=== PATIENT | female | born 1965 | race Caucasian/White ===

== ENCOUNTER 2017-01-21 10:17 | Inpatient (IN) | payer OTHER ==
[2017-01-21] VITALS (7 sets, daily range): BP systolic 128–152; BP diastolic 75–86; PULSE 66–84; RESP 16–20; O2SAT 95–100
[~2017-01-21] VITALS: Ht 167.6 cm; Wt 75.1 kg
[~2017-01-21 10:17] MED LIST: FAMO20T PO
--- NOTE | 2017-01-21 10:44 | ED.REPORT ---
HPI-Chest Pain 40 and Over Date of Service Jan 21, 2017 ED Provider: ZohaibAlexander A 51 year old female with a personal history of smoking and COPD and a family history of hypertension and peripheral vascular disease presents to the ED complaining of chest pain. The pt experienced an episode of constant substernal chest pain last night lasting from 16:00 to 19:00. This was accompanied by dizziness and diaphoresis but the pt denies nausea, vomiting, cough, fever, lower extremity edema, neck pain or back pain. The pain was relieved somewhat by breathing deeply and resolved at 19:00, allowing the pt to sleep. She woke at 04:50 this morning to similar pain. The symptoms continued until the pt's arrival in the ED and is now radiating into her right arm. The pt has experienced similar symptoms every few months for the last two years, each of which lasts for five to ten minutes. She has a family history of hypertension and cardiac disease, but denies recent travel or a history of PE. Nursing Notes Stated Complaint: CHEST PAIN Chief Complaint: Chest Pain Nursing Notes Reviewed: Yes Allergies: Coded Allergies: No Known Allergies (Verified Allergy, Unknown, 01/21/17) Scheduled Latanoprost (Latanoprost) 2.5 Ml Drops 1-2 DROP BOTH_EYES HS Scheduled PRN Albuterol HFA (Proair HFA) 8.5 Gm Hfa.aer.ad 2 PUFFS INHALATION Q4H PRN PRN For Shortness of Breath Cyclobenzaprine (Cyclobenzaprine) 10 Mg Tablet 10 MG PO HS PRN PRN For Spasm General Time Seen by MD: 10:44 Chief Complaint Chest pain Hx Obtained From: Patient Arrived By: Walk-in Sudden in Onset?: Yes Symptom Duration: Intermittent Recent Healthcare: No recent hospitalization, Recent doctor visit Similar Sx Previous: No Risk Factors PERC Rule Age 50 or over PERC Result: All PERC criteria "No", PERC rule satisfied Past Medical History Past Medical History Reports: COPD Past Surgical History Gallbladder Reports: Appendectomy Family History HTN Peripheral vascular disease Smoking History Current Every Day Smoker Social History Other Social History: Good social support Ambulatory Status Independent Review of Systems Review of Systems Note: denies lower extremity edema Constitutional: Denies: Fever Respiratory: Denies: Non-productive cough, Shortness of breath Cardiovascular: Reports: Chest pain GI: Denies: Abdominal pain, Nausea, Vomiting Musculoskeletal: Denies: Back pain, Neck pain Skin: Reports Diaphoresis, Denies Rash Neurologic: Reports: Dizziness Complete sys rev & neg: except as marked. Physical Exam Initial Vital Signs Vital Signs (First) Date Time Temp Pulse Resp B/P Pulse Ox O2 Delivery O2 Flow Rate FiO2 01/21/17 10:40 36.7 70 20 152/84 100 Room Air Initial VS: Reviewed General/Constitutional: Awake, Alert Respiratory / Chest: Atraumatic, Breath sounds NL, Breath sounds = bilat, No respiratory distress Cardiovascular: Heart rate NL, Regular rhythm, Heart sounds NL, No murmurs Abdomen: Atraumatic, Soft, Non-tender Neck: Atraumatic, Supple, Full range of motion Back: Atraumatic, Full range of motion Lower Extremity / Pelvis / MS: Atraumatic, Full range of motion, No edema Skin: Atraumatic, Color NL, No rash, Warm, Dry Neurologic: Oriented X3, Speech NL, No motor deficits, No sensory deficits Psychiatric: Affect NL, Mood NL Head / Eyes: Atraumatic, Normocephalic, PERRL, EOMI ENT: Atraumatic, Airway patent, Mucous membranes moist Upper Extremity / MS: Atraumatic, Full range of motion Interpretation & Diagnostics Lab Results Interpretation Result Diagram: 01/21/17 1030 01/21/17 1030 Test 01/21/17 10:30 01/21/17 12:40 01/21/17 16:22 White Blood Count 4.9th/mm3 (3.8-10.1) Red Blood Count 4.78mil/mm3 (3.90-5.20) Hemoglobin 13.8g/dL (12.0-15.6) Hematocrit 42.3% (35.0-46.0) Mean Corpuscular Volume 88.5fL (81-100) Mean Corpuscular Hemoglobin 28.9pg (27.0-35.0) Mean Corpuscular Hemoglobin Concent 32.6% (32.0-37.0) Red Cell Distribution Width 13.9% (12.3-15.4) Platelet Count 203bil/L (150-400) Neutrophils (%) (Auto) 57.3% (40-74) Lymphocytes (%) (Auto) 33.0% (14-46) Monocytes (%) (Auto) 6.4% (4-12) Eosinophils (%) (Auto) 2.3% (0-5) Basophils (%) (Auto) 0.8% (0-3) Sodium Level 137mEq/L (134-144) Potassium Level 4.0mEq/L (3.5-5.2) Chloride Level 102mEq/L (97-108) Carbon Dioxide Level 21mmol/L (18-29) Blood Urea Nitrogen 13mg/dL (6-24) Creatinine 0.62mg/dL (0.57-1.00) Estimat Glomerular Filtration Rate 144mL/min (>59) Glucose Level 97mg/dL (60-99) Calcium Level 9.5mg/dL (8.5-10.1) Magnesium Level 2.0mg/dL (1.6-2.6) Total Bilirubin 0.5mg/dL (0.0-1.2) Aspartate Amino Transf (AST/SGOT) 15U/L (0-50) Alanine Aminotransferase (ALT/SGPT) 11U/L (0-32) Alkaline Phosphatase 79U/L (25-150) Total Protein 6.9g/dL (6.4-8.4) Albumin 4.1g/dL (3.4-5.0) Hold Lo Top Tube Received (Received) Troponin T < 0.010ug/L (0.0-0.011) Pro-B-Type Natriuretic Peptide 88.91pg/mL (0-249) Urine Color Straw (YELLOW) Urine Appearance Clear (CLEAR,HAZY) Urine pH 6.0 (5.0-8.0) Urine Specific [place] 1.010 (1.003-1.035) Urine Protein Tracemg/dL (NEG,TRACE) Urine Glucose (UA) Negativemg/dL (NEGATIVE) Urine Ketones Negativemg/dL (NEGATIVE) Urine Occult Blood Trace (NEGATIVE) Urine Nitrite Negative (NEGATIVE) Urine Bilirubin Negative (NEGATIVE) Urine Urobilinogen Normalmg/dL (NORMAL) Urine Leukocyte Esterase Moderate (NEGATIVE) Urine RBC 0-2/hpf (0-2) Urine WBC 0-5/hpf (0-5) Urine Epithelial Cells Few/hpf (NONE-MOD) Urine Crystals None seen (NONE SEEN) Urine Bacteria Few/hpf (NONE-FEW) Urine Hyaline Casts None/lpf (NONE) Urine Granular Casts None seen (NONE SEEN) Urine Waxy Casts None seen (NONE SEEN) Urine Red Blood Cell Casts None seen (NONE SEEN) Urine White Blood Cell Casts None seen (NONE SEEN) Urine Mucus None seen (None Seen) Urine Trichomonas None seen (NONE SEEN) Urine Yeast None (NONE SEEN) Urinalysis Comment None Urine Culture Reflexed Indicated Urine Opiates Screen Negative Urine Methadone Screen Negative Urine Barbiturates Screen Negative Urine Amphetamines Screen Negative Urine Benzodiazepines Screen Negative Urine Cocaine Metabolite Screen Negative Urine Cannabinoids Screen Positive ECG Interpretation ECG Interpretation: Sinus rhythm with a rate of [address]/T changes Time: 10:40 Interpreted by: ED physician ECG Interpretation: normal sinus rhythm with a rate of [address]/T changes Q waves in -VIII, unchanged Time: 13:44 Interpreted by: ED physician X-Ray Chest Interpretation Chest Xray Interpretation: IMPRESSION: No acute cardiopulmonary disease process. Dictated by: Alee Ludwig MD, PhD on 01/21/2017 at 11:49 Approved by: Alee Ludwig MD, PhD on 01/21/2017 at 11:50 Interpretation / Wet Read by: Interpret - Radiologist Re-Eval/Medical Decision Med Decision/Clinical Course 51-year-old female history of smoking presenting with substernal chest pain last night and this morning. Troponins negative 2. No EKG changes. Patient had 2 episodes of substernal chest pain lasting 5-10 minutes while she was here with associated diaphoresis. Cannot rule out unstable angina. History of episodes for 1 year monthly. Patient requests admission. Admitted for ACS rule out. Source of Hx: Old records Time of Eval: 13:52 Re-Evaluation/Progress Note: Pt rechecked and further history is obtained. Time of Eval: 15:10 Re-Evaluation/Progress Note: Pt rechecked, who is stable. Options for both admission and discharge are discussed, and the pt requests admission. The pt understands and agrees with the plan. All questions are addressed at this time. Consultation : Referral / Consult Name: Geovanny Lucio MD Consulted With: Hospitalist Call Returned at: 15:24 [employer] Program Coordinator: Agrees with eval, Agrees with plan, Accepts admit Note: Spoke with Dr. Lucio, hospitalist, regarding pt's case. Dr. Lucio agrees with the evaluation and agrees to admit the pt. Counseled Regarding: Diagnosis, Lab results, Need for admission Discharge & Departure Primary Impression: Chest pain Chest pain type: unspecified Qualified Code: R07.9 - Chest pain, unspecified Disposition: ADMITTED TO HOSPITAL Discharge Condition All VS Reviewed: Yes Condition: Stable Referrals: Dian Ruiz PA-C (PCP) Guy Attestation Portions of this note were transcribed by Nyasia Vincent. I, Dr. Tena personally performed the history, physical exam and medical decision-making; I reviewed and confirmed the accuracy of the information in the transcribed note. Signed by: Guy Rutherford, 01/21/17 and 1529. copies to: Dian Ruiz PA-C, Ben M MD Jan 21, 2017 10:44 Lori Ward Jan 21, 2017 10:50 NYASIA VINCENT Jan 21, 2017 11:11
[2017-01-21 10:47] LABS: BASOPHILS % (AUTO) 0.8 % (0-3); EOSINOPHILS % (AUTO) 2.3 % (0-5); MONOCYTES % (AUTO) 6.4 % (4-12); Mean Corpuscular Hemoglobin 28.9 pg (27.0-35.0); Mean Corpuscular Volume 88.5 fL (81-100); NEUTROPHILS % (AUTO) 57.3 % (40-74); Platelet Count 203 bil/L (150-400)
[2017-01-21 11:11] LABS: TROPONIN T 0.01 ug/L (0.0-0.011)
--- NOTE | 2017-01-21 11:51 | DRSVH ---
PROCEDURE: X-RAY CHEST ONE VIEW, PORTABLE ([id number]) INDICATIONS: CHEST PAIN TECHNIQUE: One view of the chest was acquired. COMPARISON: [facility], CR, XR CHEST 1VW (PORTABLE), 07/06/2016, 11:49. FINDINGS: Surgical changes and devices: None. Lungs and pleura: No pleural effusions or pneumothorax. Lungs are clear. Mediastinum: Mediastinal contours appear normal. Heart size is normal. Bones and chest wall: No suspicious bony lesions. Overlying soft tissues appear unremarkable. IMPRESSION: No acute cardiopulmonary disease process. Dictated by: Alee Ludwig MD, PhD on 01/21/2017 at 11:49 Approved by: Alee Ludwig MD, PhD on 01/21/2017 at 11:50
[2017-01-21] MEDS ORDERED: LidocaineVisc 2%:Antacid 1:1 10 mL Syringe PO ONE (14:05)
[2017-01-21] MEDS ORDERED: LATA2.5D6 BOTH_EYES (14:38)
[2017-01-21] MEDS ORDERED: CYCL10TA9 PO (14:38)
[2017-01-21] MEDS ORDERED: ALBU8.5H2 INHALATION (14:44)
[2017-01-21] MEDS ORDERED: Polyethylene Glycol (PEG) 17 Gm Powder PO PRN (16:05)
[2017-01-21] MEDS ORDERED: Ondansetron 2 mg/mL 2 mL Inj IVPUSH PRN (16:05)
[2017-01-21] MEDS ORDERED: Alum-Mag Hydrox-Simeth 30 mL Suspension PO PRN (16:05)
[2017-01-21 16:38] LABS: APPEARANCE,URINE CLEAR (CLEAR,HAZY); COLOR,URINE STRAW (YELLOW)
[2017-01-21 16:39] LABS: OCCULT BLOOD,URINE TRACE (NEGATIVE); UROBILINOGEN,URINE NORMAL (NORMAL)
--- NOTE | 2017-01-21 18:02 | NUR ---
ADMIT TO [facility] Patient arrived at [facility] at 1630, oriented to room and hospital policies. Patient denies chest pain at this time. LOC x4, VSS, Labs appear normal including second Troponin. Patient on room air, denies nausea, and shortness of breath. Plan observation, serial troponin, ECHO, and stress test in am.
--- NOTE | 2017-01-21 19:47 | PCM.HPMED ---
Subjective Date of Service Jan 21, 2017 Primary Provider: Admitting Physician: Geovanny Lucio MD Primary Care Physician: Dian Ruiz PA-C Attending Physician: Geovanny Lucio MD Chief Complaint: Chest pain History of Present Illness: Patient is a 51-year-old white female who has been having chest pain possibly 2 times a month at his quite severe and feels like someone is sitting on her chest. She began having that pain again this morning which woke her up at approximately 450 in the morning. Patient generally work wakes up at 5. Patient felt like there was someone sitting on her chest or her cat was sitting on her chest. He tried repositioning herself to help alleviate the pain and taking the breast nothing really worked. She ended up leaving the house just after 5 AM to go to work the patient arrived at work at 5:19 AM. She started working at 5:30 AM. She had to stop and take deep rest periodically to try to alleviate her pain. She then had a coworker take her vital signs as her coworker was also a technical training coordinator and [employer]. Her coworker told her that she looked pale and diaphoretic and needed to go to the emergency room. Patient came to the emergency room and was evaluated by Dr. Gil Logan. Patient had a troponin which was negative she was given a GI cocktail she approximate 5 over several hours later had another strip on which was negative the patient was agreeable to go home until she had another episode of chest pain with diaphoresis. Patient states she was sweating from head to toe even wanted to take her shoes and socks off she felt weak and the chest pain was similar or worse than the pain prior to coming into the emergency room. Due to the recurrent chest pain and history of tobacco use the patient was to be brought in under observation to the hospital service for further evaluation and treatment. Review of Systems: General: The patient complained of diaphoresis. However, no she had no fever or chills. The diaphoresis was associated with her chest pain. HEENT: Patient has no headache, patient has no diplopia, patient has no changes in vision. However, patient states she is supposed to wear glasses all the time and only wears them all driving. He states are hard to get used to. Patient also has recently been diagnosed with glaucoma in both eyes. Patient has no problems with their ears, nose or throat. Patient has no known dental problems. Patient has no pharyngitis or history of thrush. Neck: Patient has no stiffness in the neck. Patient has no lymphadenopathy. Patient has no other problems with their neck. Pulmonary: Patient has no shortness of breath, no cough, no expectoration of sputum. Patient has no pleurisy. Patient had chest pain as described in history of present illness. Patient has no history of asthma or COPD. Cardiovascular: Patient has no chest pain. Patient has no history of heart murmur. Patient has no palpitations. Patient has no history of myocardial infarction. Patient has no history of coronary artery disease. Gastrointestinal: Patient has no history of hepatitis A, B or C. Patient has no history of peptic ulcer disease. Patient has no history of gastroesophageal reflux disease. Patient has no history of nausea, vomiting, or diarrhea. Patient has no history of hematemesis, hematochezia, or melena. Patient has no history of colitis. Renal: Patient has no history of kidney disease. No history of kidney stones. Genitourinary: Patient has no history of dysuria, frequency, or incontinence. Patient has no previous history of genitourinary problems. Musculoskeletal: Patient has no history of muscular skeletal problems. Neurologic: Patient has no history of stroke, no history of seizure, no history of TIA. Psychiatric: Patient has no history of psychiatric problems. The remainder of the entire review of systems was reviewed with patient and is as mentioned above otherwise negative. Allergies Coded Allergies: No Known Allergies (Verified Allergy, Unknown, 01/21/17) Home Medications Scheduled Latanoprost (Latanoprost) 2.5 Ml Drops 1-2 DROP BOTH_EYES HS Scheduled PRN Albuterol HFA (Proair HFA) 8.5 Gm Hfa.aer.ad 2 PUFFS INHALATION Q4H PRN PRN For Shortness of Breath Cyclobenzaprine (Cyclobenzaprine) 10 Mg Tablet 10 MG PO HS PRN PRN For Spasm PMH Patient says she has COPD she is smoked since she was 12 years old and has smoked as much as 2 packs per day however now she is down to one half a pack per day. Patient states that every time someone checks her blood pressure they say it is "high" but she has never taken anything for blood pressure. Surgical History Patient had a cholecystectomy in January 1993 and had an appendectomy in 1992. Patient underwent tubal ligation in May 1993. Family History His father is alive and has emphysema. Does not know much more about her father she does not have contact with him. Patient's mother at 77 from complications of systemic lupus erythematosus and peripheral vascular occlusive disease. She had infected bypass graft material or stents placed in her legs and ended up having a very high above the knee amputation which ultimately was the beginning of her demise. Patient has 1 sister who is a smoker and had Garcia-Diogenes syndrome so severe that she was hospitalized for [address] [facility]. Patient sister blame this on Chantix. Patient has 1 older brother who is healthy and one younger brother who is healthy. Social History Hx Alcohol Use: No Hx Substance Use: No Smoking Status: Current Every Day Smoker (The patient has smoked since she was 12 years old and interpeak was smoking 2 packs per day and now smokes only half a pack a day.) Living Arrangement: with Family (The patient lives with her and her 24 -year-old son.) Additional Information The patient was born in [place], [place]. She went to high school there and graduated in 1981. She went to [employer] for 2 years and learned [employer]. 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 She worked for [employer] for 3 years. Patient has been now for 28 years she was living on [address] and now lives in lock on her for the last 3 years. She works at the [employer] in the [facility] [employer] where her daughter is her boss. Exam Vital Signs Vital Sign - Last Date Time Temp Pulse Resp B/P Pulse Ox O2 Delivery O2 Flow Rate FiO2 01/21/17 17:47 67 01/21/17 16:47 36.6 16 146/85 98 Room Air Exam General: Patient is in no apparent distress present time. He is lying supine in bed with her head elevated approximately 30 comfortably. HEENT: Head is atraumatic and normocephalic. Eyes: Pupils are equally round and reactive to light and accommodation. Extraocular muscles are intact. Sclera are white, anicteric. Subconjunctival mucosa is pink. Ears and nose are unremarkable. Oropharynx: There is no mucosal lesions, there is no thrush, there is no pharyngitis. Neck: Is supple, there are no nodes, or masses or tenderness. Chest: Is clear to auscultation and percussion. There are no rales, rhonchi, wheezes or rubs. Heart: Rate, rhythm is regular. There is no murmur, rub or gallop. Abdomen: Good bowel sounds are present. Abdomen is soft, nontender, no organomegaly or masses were appreciated. Extremities: Are symmetrical and well perfused. There is no edema, there is no cellulitis, no rash. Neurologic: There are no focal neurological deficits. Cranial nerves II through XII are intact. There are no sensory or motor deficits. Psychiatric: Patients mood is calm and shows no sign of agitation. Genital: Deferred Rectal: Deferred Lab and Diagnostics Result Diagram: 01/21/17 1030 01/21/17 1030 Microbiology Urine cultures pending X-Rays, CTs and MRIs PROCEDURE: X-RAY CHEST ONE VIEW, PORTABLE ([id number]) INDICATIONS: CHEST PAIN TECHNIQUE: One view of the chest was acquired. COMPARISON: [facility], CR, XR CHEST 1VW (PORTABLE), 07/06/2016, 11 :49. FINDINGS: Surgical changes and devices: None. Lungs and pleura: No pleural effusions or pneumothorax. Lungs are clear. Mediastinum: Mediastinal contours appear normal. Heart size is normal. Bones and chest wall: No suspicious bony lesions. Overlying soft tissues appear unremarkable. IMPRESSION: No acute cardiopulmonary disease process. Dictated by: Alee Ludwig MD, PhD on 01/21/2017 at 11:49 Approved by: Alee Ludwig MD, PhD on 01/21/2017 at 11:50 Cardiac Echo Impressions Pending Assessment & Plan Patient is a 51-year-old white female who has been having chest pain possibly 2 times a month at his quite severe and feels like someone is sitting on her chest. She began having that pain again this morning which woke her up at approximately 450 in the morning. Patient generally work wakes up at 5. Patient felt like there was someone sitting on her chest or her cat was sitting on her chest. He tried repositioning herself to help alleviate the pain and taking the breast nothing really worked. She ended up leaving the house just after 5 AM to go to work the patient arrived at work at 5:19 AM. She started working at 5:30 AM. She had to stop and take deep rest periodically to try to alleviate her pain. She then had a coworker take her vital signs as her coworker was also a technical training coordinator and [employer]. Her coworker told her that she looked pale and diaphoretic and needed to go to the emergency room. Patient came to the emergency room and was evaluated by Dr. Gil Logan. Patient had a troponin which was negative she was given a GI cocktail she approximate 5 over several hours later had another strip on which was negative the patient was agreeable to go home until she had another episode of chest pain with diaphoresis. Patient states she was sweating from head to toe even wanted to take her shoes and socks off she felt weak and the chest pain was similar or worse than the pain prior to coming into the emergency room. Due to the recurrent chest pain and history of tobacco use the patient was to be brought in under observation to the hospital service for further evaluation and treatment. # Chest pain, present at the time of admission. Active, however patient has no chest pain at present time. - We will trend serial troponins - We will check echocardiogram - Continue telemetry monitoring - If above unremarkable perform treadmill stress test tomorrow. If positive will consult cardiology and if negative will discharge home. # Patient has history of hypertension that has never been treated, present time of admission. Active. - We will monitor blood pressure goals closely and offer treatment if patient is found to have hypertension. # COPD, present time of admission. Active - We will offer treatment as needed. - Patient advised strongly overnight over again that she needs to quit smoking. She states is difficult as she has been smoking since she was 12 years old. However, she has cut down to half a pack per day. 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 - Check hypercoagulable panel - Consider CT angiogram the chest to rule out pulmonary embolism as cause for her chest pain and diaphoresis. Disposition: Patient brought in under observation for evaluation and treatment. Further disposition will depend on the results of above testing. Pain Evaluation: Adequate Pain Control VTE Prophylaxis: Sub-Q Enoxaparin Resuscitation Status: CPR: Attempt Resuscitation Geovanny Lucio MD Jan 21, 2017 19:47
--- NOTE | 2017-01-21 21:24 | DRSVH ---
PROCEDURE: CT ANGIOGRAPHY OF THE CHEST WITH AND WITHOUT CONTRAST ([id number]) INDICATIONS: chest pain diaphoresis/possible pulmonary embolism TECHNIQUE: After the administration of intravenous contrast, 3 mm thick sections acquired from the lung apices t o the posterior lung bases. 3-dimensional maximum intensity projection (MIP) oblique sagittal reform ats were then acquired parallel to the aortic arch, and/or 3-dimensional volume rendering reformats. For radiation dose reduction, the following was used: automated exposure control. COMPARISON: [facility], CR, XR CHEST 1VW (PORTABLE), 01/21/2017, 11:13. [facility], CT, CHEST W/O CONTRAST, 10/12/2014, 9:30. FINDINGS: Image quality: Excellent. Aorta: Aorta and great vessels are normal in size. No mural irregularity or contrast extravasation to suggest aortic injury. No aortic dissection. Mediastinum: Heart size is normal. No pericardial effusion. No mediastinal or hilar adenopathy by size criteria. Central pulmonary arteries are normal in size without filling defects. Esophagus is normal in caliber. Small hiatal hernia. Lungs and pleura: There is a subpleural density in the right lung base, most likely atelectasis. The re are several subcentimeter lung nodules. A 5 minute nodule in the right lower lobe (series 6 image 34) was present on 10/12/2014 and appears slightly enlarged (previously 3 mm). Other nodules are uncha nged. There is mild centrilobular emphysema. No acute airspace opacities. No pleural effusions or pn eumothorax. Central and peripheral airways are patent and normal in caliber. Bones and chest wall: No axillary adenopathy by size criteria. Thyroid gland appears normal. No barnett spicious bony lesions. No vertebral body compression fractures. Abdomen: Visualized upper abdominal solid organs and bowel loops appear normal. IMPRESSION: 1. No aortic aneurysm or dissection. 2. No evidence for central pulmonary embolism. 3. Small lung nodules bilaterally. A 5 minute nodule right lower lobe nodule has slightly enlarged co mpared to 10/12/2014. This nodule was sub-solid on the prior exam and appears increased in density. A [address] is suggested. 4. Small hiatal hernia. Fleischner Society criteria for SOLID lung nodule followup. Nodule size (mm)Low-risk patientHigh-risk [id number] follow-up neededFollow-up at 12 mo; if no lopez e, no further follow-up>6-8Pghvcc-yg CT at 12 mo; if no change, no further follow-up needed.Initial f ollow-up CT at 6-12 mo, then 18-24 mo if no change. >6-8Initial follow-up CT at 6-12 mo, then 18-24 mo if no change. Initial follow-up CT at 3-6 mo, then 9-12 mo and 24 mo if no change. >8Follow-up CT at 3, 9, 24 mo. Or PET and/or biopsy.Same as for low-risk pts. Fleischner Society criteria for SUB-SOLID lung nodule followup. Solitary pure ground-glass nodules5 mm or lessNo followup needed. >5 mm3 mo follow-up CT to confirm persistence. Then annual CT for 3 years. Part-solid nodules3 mo follow-up CT to confirm persistence . If persistent with solid component <5 mm, annual CT for at least 3 years. If solid component is 5 mm or more, biopsy or surgical resection. Consider PET-CT for lesions > 10 mm. Multiple sub-solid nodulesPure ground glass nodules [address] at 2 and 4 years. Pure ground glass nodules >5 mm without dominant lesion. [address] to confirm persistence, then annual followup CT for at least 3 years. Dominant nodule(s) with part-solid or solid component. [address] to confirm persistence. If persistent, consider biopsy or surgical resection, radha if lesions have >5 m m solid component. Dictated by: Alcides Valenzuela M.D. on 01/21/2017 at 21:12 Transcribed by: SHAE on 01/21/2017 at 21:23 Approved by: Alcides Valenzuela M.D. on 01/22/2017 at 9:56
[2017-01-21] MEDS ORDERED: Heparin 5,000 Unit/mL Inj IVPUSH ONE (21:40)
[2017-01-21] MEDS ORDERED: Heparin 5,000 Unit/mL Inj IVPUSH PRN (22:20)
[2017-01-22] VITALS (9 sets, daily range): BP systolic 122–138; BP diastolic 82–87; PULSE 54–80; RESP 16–20; O2SAT 94–97
[2017-01-22 05:12] LABS: BASOPHILS % (AUTO) 0.8 % (0-3); EOSINOPHILS % (AUTO) 3.2 % (0-5); MONOCYTES % (AUTO) 7.2 % (4-12); Mean Corpuscular Hemoglobin 28.6 pg (27.0-35.0); Mean Corpuscular Volume 87.4 fL (81-100); NEUTROPHILS % (AUTO) 59.9 % (40-74); Platelet Count 194 bil/L (150-400)
[2017-01-22] MEDS: Heparin 25K Unit/500mL 0.45 NS 25,000 UNIT in IV Premix 1 EACH IV SCH ×2 (05:56→21:45)
[2017-01-22 06:24] LABS: Magnesium 2.2 mg/dL (1.6-2.6)
[2017-01-22 06:45] LABS: TROPONIN T 0.055 ug/L (0.0-0.011)
[2017-01-22] MEDS ORDERED: Albuterol 2.5 mg/3 mL Inhalation Solution NEB PRN (07:00)
--- NOTE | 2017-01-22 12:17 | NUR ---
Heparin Infusion: 1100 Heparin PTT 67.9. No change in rate per protocol. Remains at 1100u/hr. Next Heparin PTT @ 1700. Addendum: 01/22/17 at 1747 by GALO OBREGON RN 1700 Heparin PTT 59.7. Increased by 25u to 1125u/hr (22.5ml/hr). Next Heparin PTT @ 2300.
--- NOTE | 2017-01-22 12:27 | DRSVH ---
[facility] [address] [place] [address] Echocardiogram Report Name: DARRELL MOHR DStudy Date: 01/22/2017 Height: 66 in Hospital Exam Location: [facility] Weight: 166 lb Gender: Female BSA: 1.8 m2 : 1965 Age: 51 yrs BP: 134/ 87 mmHg Reason For Study: Chest pain Ordering Physician: HOSPITALIST [facility] Performed By: James Zhao Referring Physician: JOSSUE STOREY Interpretation Summary 1. Normal left ventricular size and wall thickness with wall motion abnormalities as noted below. Estimated EF of 35 to 40% 2. Normal right ventricular size and systolic function 3. No valvular pathology appreciated. There is no old study for comparison Procedure: A two-dimensional transthoracic echocardiogram with color flow and Doppler was performed. The study quality was technically good. There is no prior echocardiogram noted for this patient. The patient was in normal sinus rhythm during the exam. Left Ventricle: The left ventricle is normal in size. There is normal left ventricular wall thickness. The ejection fraction is estimated to be 35-40%. Hypokinesis of the mid anterior and inferior septum, the mid anterior wall, mid inferior wall and possibly the mid lateral segment. Right Ventricle: The right ventricle is normal in size and function. Atria: Both atria are normal in size. No color doppler evidence for an ASD. Mitral Valve: The mitral valve is normal in structure and function. There is trace mitral regurgitation. Aortic Valve: The aortic valve is trileaflet. The aortic valve opens well. There is no aortic regurgitation. Tricuspid Valve: The tricuspid valve is normal in structure and function. There is a trace or physiologic amount of tricuspid regurgitation. Pulmonary artery pressures cannot be estimated because of the lack of a measurable TR jet velocity. Pulmonic Valve: The pulmonic valve leaflets are thin and pliable; valve motion is normal. There is trace pulmonic regurgitation. Great Vessels: The aortic root is normal size. The ascending aorta is normal in size. The pulmonary artery is normal size. The IVC is of normal diameter and collapses greater than 50% with a sniff. This suggests a low right atrial pressure of 3 mm Hg. Pericardium/ Pleura There is a trace loculated pericardial effusion. There is no pleural effusion. MMode/2D Measurements & Calculations LVIDd: 5.2 cm LA dimension: 3.4 cm RA long axis: 4.0 cm LVOT diam LVIDs: 3.4 cm FS: 34.1 % LA A2 area: 18.8 cm RA area: 12.1 cm AoV Opening EPSS: 0.63 cm LA A4 area: 12.6 cm RA vol: 31.3 ml IVSd: 0.81 cm LA length (vol): 4.3 cm RA : 16.9 ml/m2 Ao root diam LVPWd: 0.81 cmLA vol: 46.6 ml asc Aorta Diam LA vol index: 25.2 ml/m IVC diam: 1.9 cm EDV(MOD-sp2) LV mandel. diameter/BSA LV sys. diameter/BSA RVD1 (basal) (cm/m^2): 2.8 (cm/m^2): 1.9 : 2.5 cm ESV(MOD-sp2) EF(MOD-sp2) RVD2 (mid) TAPSE: 1.9 cm : 2.3 cm Doppler Measurements & Calculations Ao V2 max MV E max vickey MV E/A: 0.77 PA V2 max : 96.8 cm/sec : 54.7 cm/sec Med Peak E' Vickey : 65.7 cm/sec Ao max P.8 mmHg MV A max vickey PA mean PG Ao mean P.2 mmHg : 70.8 cm/sec E/E' med: 12.4 : 0.93 mmHg LVOT Max Vickey Lat Peak E' Vickey : 83.2 cm/sec E/E' lat: 7.3 ALINA(I,D): 1.9 cm E/e' average sev ratio: 0.75 Pulm A Revs Dur MV A dur : 0.12 sec MV dec time: 0.27 secAo V2 mean LV V1 max PG PA V2 mean : 69.4 cm/sec : 44.6 cm/sec Ao V2 VTI: 21.2 cm LV V1 VTI PA pr(Accel) : 16.0 cm : 0.65 mmHg ALINA(V,D): 2.1 cm2 ALINA indexed to BSA Pulm A Revs Dur - MV A (cm^2/m^2): 1.0 Dur: 0.05 msec Reading Physician:12:27 PM
--- NOTE | 2017-01-22 14:41 | NUR ---
Social Work: Screening Data: Pt is a 51 y/o female admitted for chest pain. Pt's PCP is Dr Ruiz, pt's insurance is [employer]. EMR reviewed. Pt discussed in rounds. MD states likely no d/c planning needs. FORESTRY TECHNICIAN will continue to follow if needs arise. Assessment: Pt who is independent at baseline. Plan: Pt will d/c home via POV when medically stable. MD states likely no d/c planning needs. FORESTRY TECHNICIAN will continue to follow if needs arise. JANA Morris
--- NOTE | 2017-01-22 18:46 | CONS ---
[address] [address] CONSULTATION REPORT PATIENT: DARRELL MOHR : 1965 MR#: [id number] ADMIT: 01/21/2017 JOB ID: [id number] DATE OF SERVICE: 01/22/2017 CARDIOLOGY CONSULTATION: CHIEF COMPLAINT: I was asked by the hospital team to consult on this patient given chest pain and positive troponin. HISTORY OF PRESENT ILLNESS: The patient is a 51-year-old woman who is not treated for any particular problems. She says over the past two years she has had episodic chest pain. She says it can occur at any time. With this current episode she was at work, working at the [employer], and worked through the pain. She did notice that the pain actually worsened with activity during the day; but, given the fact that it did not resolve, she was evaluated by a nurse and she was told to go to the ED. In the ED she had no acute EKG changes. However, she was admitted to the floor with negative troponins. A plan was made for a possible stress test; however, the troponin did go up ultimately and she was started on a heparin drip. Currently she is doing well. She denies chest pain, chest pressure, increased shortness of breath. She would like to eat. She denies any history of orthopnea, PND, lower extremity edema, or palpitations. She denies increased stress. She does say she has had a history of just not feeling well, having night sweats, and has had workup with PET scan back in 2012. She is currently on heparin without problems. Last night she was started on Plavix as well as aspirin. PAST MEDICAL HISTORY/PROBLEM LIST: History of COPD. MEDICATIONS: Include albuterol and cyclobenzaprine for shoulder pain. FAMILY HISTORY: No early coronary disease. Her mother had systemic lupus erythematous and she also had stents placed. SOCIAL HISTORY: She is a smoker but she has cut down to half a pack a day. No alcohol use. REVIEW OF SYSTEMS: Overall health: She has night sweats. GI: No problems with ulcers or blood in her stool. : No dysuria, hematuria. Pulmonary: She has COPD but denies any significant shortness of breath. Cardiac: As per HPI. Also no orthopnea or PND. No lower extremity edema. No palpitations. Endocrine: No heat or cold intolerance but experiencing night sweats. Heme: No easy bruising or bleeding. Musculoskeletal: She has some right shoulder pain for which she uses cyclobenzaprine. Derm: No rash or skin breakdown. Neuro: No chronic headaches. Psych: No acute issues. Ophtho: No acute vision changes. ENT: No sore throat or difficulty swallowing. All other review of systems on a 12 point review of system are negative. PHYSICAL EXAMINATION: Blood pressure is 130/85. She is afebrile. Heart is 54. Sats are 94% on room air. General: In no acute distress. Speaking in full sentences without apparent shortness of breath. Head and neck exam: Normocephalic, atraumatic. Neck: No obvious JVD. Carotids without bruits appreciated. Heart exam: Regular rate and rhythm without murmurs, gallops, or rubs appreciated. Lungs: Clear to auscultation. Back: No CVA tenderness to palpation. Abdomen: Soft, nondistended. Extremities: Warm. No appreciable edema. 2+ distal pulses. Skin: Without breakdown appreciated. Neurologic: Alert and oriented x3. Gait is not tested. Psych: Appropriate mood and affect. Vascular: As noted, no carotid bruits. ENT: Mucous membranes moist. Ophtho: Vision grossly intact. LABORATORY DATA: Labs show a white count 5.3, an HH of 14.1 and 43.1, and platelets of 195,000. Chemistry shows sodium 139, potassium 4.2, chloride and bicarb 106 and 19, respectively. BUN and creatinine 11 and 0.59. ALT 51. Troponins were less than 0.01, then went to 0.141, and now trended down to 0.055. Cholesterol shows a total of 177, LDL of 104, and an HDL of 63. Imaging shows a CT angiogram which shows no aortic aneurysm or dissection. No evidence for central pulmonary embolism. Small lung nodules bilaterally with followup CT suggested. Small hiatal hernia. Chest x-ray showed no acute cardiopulmonary disease. EKG today shows evolving anterior changes. CURRENT MEDICATIONS: Include carvedilol 3.125 b.i.d., Plavix 75 daily, aspirin 81 mg a day, heparin drip, nitroglycerin, Lipitor. Other p.r.n. medications. IMPRESSION: The patient has an echo pending at this time. She came in with chest pain and elevated troponins. She is now chest pain free. She has involving anterior changes. This may represent left anterior descending (LAD) disease. She seems to have a lot of stress in her life and stress cardiomyopathy could certainly be considered as well. PLAN: 1. Continue with heparin drip. I have discussed the risks and benefits of cardiac catheterization, the potential findings, the potential treatments including bypass surgery, stents, the different risks for restenoses, the different durations of Plavix required. She understands and would agree to proceed. Will plan on doing this tomorrow morning. 2. Continue with current cardiac medications. I spent 40 minutes interviewing the patient and speaking with her family, examining her, reviewing her studies and discussing her case with the hospitalist team SVETA
--- NOTE | 2017-01-22 23:22 | PCM.PNMED ---
Subjective Date of Service Jan 22, 2017 Subjective Patient continues to complain of slight pain in the substernal area. She also has periodic diaphoresis which is generalized from head to toe she states is nothing like the hot flashes she used to have with her menopause years ago. She has no other new complaints. Exam Vital Signs Vital Sign - Last Date Time Temp Pulse Resp B/P Pulse Ox O2 Delivery O2 Flow Rate FiO2 01/22/17 21:36 36.8 01/22/17 21:13 76 20 122/82 97 Room Air Intake and Output 01/21/17 01/21/17 01/22/17 Cumulative From/Thru 15:00 23:00 07:00 01/21/17 10:40 - 01/21/17 18:22 Intake Total 0 ml 0 ml Output Total 0 ml 0 ml Balance 0 ml 0 ml Intake Oral 0 ml 0 ml Output Urine Total 0 ml 0 ml # Voids 1 1 Exam General: Patient is in no apparent distress present time. He is lying supine in bed with her head elevated approximately 30 comfortably. HEENT: Head is atraumatic and normocephalic. Eyes: Pupils are equally round and reactive to light and accommodation. Extraocular muscles are intact. Sclera are white, anicteric. Subconjunctival mucosa is pink. Ears and nose are unremarkable. Oropharynx: There is no mucosal lesions, there is no thrush, there is no pharyngitis. Neck: Is supple, there are no nodes, or masses or tenderness. Chest: Is clear to auscultation and percussion. There are no rales, rhonchi, wheezes or rubs. Heart: Rate, rhythm is regular. There is no murmur, rub or gallop. Abdomen: Good bowel sounds are present. Abdomen is soft, nontender, no organomegaly or masses were appreciated. Extremities: Are symmetrical and well perfused. There is no edema, there is no cellulitis, no rash. Neurologic: There are no focal neurological deficits. Cranial nerves II through XII are intact. There are no sensory or motor deficits. Psychiatric: Patients mood is calm and shows no sign of agitation. Genital: Deferred Rectal: Deferred Lab and Diagnostics Result Diagram: 01/22/17 0500 01/22/17 0500 Microbiology Urine cultures pending X-Rays, CTs and MRIs PROCEDURE: X-RAY CHEST ONE VIEW, PORTABLE ([id number]) INDICATIONS: CHEST PAIN TECHNIQUE: One view of the chest was acquired. COMPARISON: [facility], CR, XR CHEST 1VW (PORTABLE), 07/06/2016, 11 :49. FINDINGS: Surgical changes and devices: None. Lungs and pleura: No pleural effusions or pneumothorax. Lungs are clear. Mediastinum: Mediastinal contours appear normal. Heart size is normal. Bones and chest wall: No suspicious bony lesions. Overlying soft tissues appear unremarkable. IMPRESSION: No acute cardiopulmonary disease process. Dictated by: Alee Ludwig MD, PhD on 01/21/2017 at 11:49 Approved by: Alee Ludwig MD, PhD on 01/21/2017 at 11:50 Cardiac Echo Impressions Echocardiogram Report Name: DARRELL MOHR DStudy Date: 01/22/2017 Height: 66 in Hospital Exam Location: [facility] Weight: 166 lb Gender: Female BSA: 1.8 m2 : 1965 Age: 51 yrs BP: 134/ 87 mmHg Reason For Study: Chest pain Ordering Physician: HOSPITALIST [facility] Performed By: James Zhao Referring Physician: JOSSUE STOREY Interpretation Summary 1. Normal left ventricular size and wall thickness with wall motion abnormalities as noted below. Estimated EF of 35 to 40% 2. Normal right ventricular size and systolic function 3. No valvular pathology appreciated. There is no old study for comparison Assessment & Plan Patient is a 51-year-old white female who has been having chest pain possibly 2 times a month at his quite severe and feels like someone is sitting on her chest. She began having that pain again this morning which woke her up at approximately 450 in the morning. Patient generally work wakes up at 5. Patient felt like there was someone sitting on her chest or her cat was sitting on her chest. He tried repositioning herself to help alleviate the pain and taking the breast nothing really worked. She ended up leaving the house just after 5 AM to go to work the patient arrived at work at 5:19 AM. She started working at 5:30 AM. She had to stop and take deep rest periodically to try to alleviate her pain. She then had a coworker take her vital signs as her coworker was also a onsite case manager and [employer]. Her coworker told her that she looked pale and diaphoretic and needed to go to the emergency room. Patient came to the emergency room and was evaluated by Dr. Gil Logan. Patient had a troponin which was negative she was given a GI cocktail she approximate 5 over several hours later had another strip on which was negative the patient was agreeable to go home until she had another episode of chest pain with diaphoresis. Patient states she was sweating from head to toe even wanted to take her shoes and socks off she felt weak and the chest pain was similar or worse than the pain prior to coming into the emergency room. Due to the recurrent chest pain and history of tobacco use the patient was to be brought in under observation to the hospital service for further evaluation and treatment. # Chest pain, present at the time of admission. Active, with diaphoresis.. - Patient's troponins have trended to significantly positive levels. Therefore , Dr. Ursula Lopez has been consulted and will take the patient for a cardiac catheterization in a.m. - A heparin drip has been started - Continue aspirin - Continue telemetry monitoring # Patient has history of hypertension that has never been treated, present time of admission. Active. - We will start carvedilol 3.125 mg by mouth twice a day. # COPD, present time of admission. Active - We will offer treatment as needed. - Patient advised strongly overnight over again that she needs to quit smoking. She states is difficult as she has been smoking since she was 12 years old. However, she has cut down to half a pack per day. 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 - Check hypercoagulable panel - CT angiogram the chest to rule out pulmonary embolism as cause for her chest pain and diaphoresis was performed and showed a 5 mm pulmonary nodule which has increased in size from 3 mm on the last CT scan. - Consider coccidiomycosis, will check serology. - Consider other such as malignancy. .. Patient will need follow-up CT scan in 3-6 months. Disposition: Patient will be taken for cardiac catheterization in a.m. by Dr. Ursula Lopez. Dr. Dillon Keenan to follow in a.m. Pain Evaluation: Adequate Pain Control VTE Prophylaxis: Sub-Q Enoxaparin Resuscitation Status: CPR: Attempt Resuscitation Naveed,Christopher E MD Jan 22, 2017 23:22
[2017-01-23] VITALS (16 sets, daily range): BP systolic 110–142; BP diastolic 75–109; PULSE 58–74; RESP 12–20; O2SAT 94–100
[2017-01-23 04:52] LABS: BASOPHILS % (AUTO) 0.7 % (0-3); EOSINOPHILS % (AUTO) 2.5 % (0-5); MONOCYTES % (AUTO) 7.4 % (4-12); Mean Corpuscular Hemoglobin 28.8 pg (27.0-35.0); Mean Corpuscular Volume 87.5 fL (81-100); NEUTROPHILS % (AUTO) 59.4 % (40-74); Platelet Count 200 bil/L (150-400)
[2017-01-23 05:06] LABS: INR 0.95 ratio
[2017-01-23 05:31] LABS: ERYTHROCYTE SEDIMENTATION RATE 4 mm/hr (0-40)
--- NOTE | 2017-01-23 06:28 | NUR ---
Prep for Heart Cath pt verbalized understanding of procedure, verbalized understanding of the possible complications, does not have any questions, consent has been signed-placed in chart. around 05:30 pt had a chlorhexidine wipe bath, LE pulses marked, pt has 2 IV sites- they flush without discomfort. No order to stop Heparin gtt- continues at this time. earings and ring were removed and placed in a cup. cup provided for dentures- to be removed prior to procedure. pt has questions regarding "How long will the procedure take?". RN verbalized the need to speak with the MD, with regards to what/if something is found and if an intervention is needed. pt is A&Ox4. using call light to make needs known, placed within reach. hourly rounding in effect.
[2017-01-23] MEDS ORDERED: Heparin 10,000 Unit/1,000 mL NS Premix IV ONE (07:38)
[2017-01-23] MEDS ORDERED: Heparin 1,000 Units/500 mL NS Premix IV ONE (07:38)
[2017-01-23] MEDS ORDERED: Nitroglycerin 50,000 mcg/250 mL D5W Premix IV ONE (07:40)
--- NOTE | 2017-01-23 07:40 | NUR ---
Off Unit: Patient transported to [facility] @ approx 0740 via bed accompanied by [facility] staff. visitor services technician notified. SR 70s per telephone technician. Plavix and ASA administered per [facility] request. No apparent distress at time of transport.
[2017-01-23] MEDS ORDERED: fentaNYL-PF 50 mCg/mL 2 mL Inj ONE (07:48)
[2017-01-23] MEDS ORDERED: Heparin 1,000 Unit/mL 10 mL Inj ONE (08:09)
--- NOTE | 2017-01-23 11:56 | NUR ---
NABIL Patient to [facility] Bed 8 at 0915. Patient denies pain. Family at bedside. Right groin manual hold without bleeding or hematoma. Pedal pulses present. Strict bedrest with bed flat X 2 hours. Transferred back to room 3019 at 1135. Report to receiving RN.
--- NOTE | 2017-01-23 13:44 | PCM.PNMED ---
Subjective Date of Service Jan 23, 2017 Subjective She is seen today in her room to follow-up her chest pain and EKG changes which are confirmed on heart catheterization today with Dr. Lopez to be stress cardiomyopathy. The arteries are clear. The last major loss/ the family was 4 years ago. Her current amounts of stress do not seem to be more than her usual. The CBC and CMP are normal. Exam Vital Signs Vital Sign - Last Date Time Temp Pulse Resp B/P Pulse Ox O2 Delivery O2 Flow Rate FiO2 01/23/17 11:32 61 12 124/109 01/23/17 11:31 98 Room Air 01/23/17 05:32 36.9 Intake and Output 01/22/17 01/22/17 01/23/17 Cumulative From/Thru 15:00 23:00 07:00 01/21/17 10:40 - 01/23/17 06:47 Intake Total 758 ml 500 ml 896 ml 2154 ml Output Total 1150 ml 1000 ml 650 ml 2800 ml Balance -392 ml -500 ml 246 ml -646 ml Intake Oral 758 ml 500 ml 218 ml 1476 ml IV Total 678 ml 678 ml Output Urine Total 1150 ml 1000 ml 650 ml 2800 ml # Voids 1 # Bowel Movements 0 1 0 1 Exam Heart is regular rate and rhythm without murmur Lungs are clear to auscultation bilaterally Abdomen soft, bowel signs positive, nontender, no organomegaly. Extremities have no ankle edema. Lab and Diagnostics Result Diagram: 01/23/17 0410 01/23/17 0410 Microbiology Urine cultures pending X-Rays, CTs and MRIs PROCEDURE: X-RAY CHEST ONE VIEW, PORTABLE ([id number]) INDICATIONS: CHEST PAIN TECHNIQUE: One view of the chest was acquired. COMPARISON: [facility], CR, XR CHEST 1VW (PORTABLE), 07/06/2016, 11 :49. FINDINGS: Surgical changes and devices: None. Lungs and pleura: No pleural effusions or pneumothorax. Lungs are clear. Mediastinum: Mediastinal contours appear normal. Heart size is normal. Bones and chest wall: No suspicious bony lesions. Overlying soft tissues appear unremarkable. IMPRESSION: No acute cardiopulmonary disease process. Dictated by: Alee Ludwig MD, PhD on 01/21/2017 at 11:49 Approved by: Alee Ludwig MD, PhD on 01/21/2017 at 11:50 Cardiac Echo Impressions Echocardiogram Report Name: DARRELL MOHR DStudy Date: 01/22/2017 Height: 66 in Hospital Exam Location: [facility] Weight: 166 lb Gender: Female BSA: 1.8 m2 : 1965 Age: 51 yrs BP: 134/ 87 mmHg Reason For Study: Chest pain Ordering Physician: HOSPITALIST [facility] Performed By: James Zhao Referring Physician: JOSSUE STOREY Interpretation Summary 1. Normal left ventricular size and wall thickness with wall motion abnormalities as noted below. Estimated EF of 35 to 40% 2. Normal right ventricular size and systolic function 3. No valvular pathology appreciated. There is no old study for comparison Assessment & Plan # Chest pain, present at the time of admission. Active, with diaphoresis.. - Patient's troponins have trended to significantly positive levels. Therefore , Dr. Ursula Lopez took her for a cardiac catheterization today. There is no significant coronary artery disease. This is a stress cardiomyopathy. - We will continue aspirin, Plavix and Coreg. # Patient has history of hypertension that has never been treated, present time of admission. Active. - We will continue carvedilol 3.125 mg by mouth twice a day. # COPD, present time of admission. Active - We will offer treatment as needed. - Patient was advised strongly again that she needs to quit smoking. She states is difficult as she has been smoking since she was 12 years old. However , she has cut down to half a pack per day. 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 - Check hypercoagulable panel - CT angiogram the chest to rule out pulmonary embolism as cause for her chest pain and diaphoresis was performed and showed a 5 mm pulmonary nodule which has increased in size from 3 mm on the last CT scan. - Consider coccidiomycosis, will check serology. - Consider other such as malignancy. .. Patient will need follow-up CT scan in 3-6 months. Disposition: Per discussion with cardiology will discharge home tomorrow. VTE Prophylaxis: Sub-Q Enoxaparin Resuscitation Status: CPR: Attempt Resuscitation Franci Fagan MD Jan 23, 2017 11:47
--- NOTE | 2017-01-23 14:42 | CS94 ---
[address] [address] DIAGNOSTIC CARDIAC CATHETERIZATION PATIENT: DARRELL MOHR : 1965 MR#: [id number] ADMIT: 01/21/2017 JOB ID: [id number] SERVICE DATE: 01/23/2017 PROCEDURES PERFORMED: 1. Left heart catheterization with coronary angiography. 2. Left ventriculography. 3. Ascending aortography. INDICATIONS: A 51-year-old woman who presented with chest pain, elevated troponins consistent with non-ST elevation CA, and an abnormal echocardiogram. She presents for further assessment by cardiac catheterization. DESCRIPTION OF PROCEDURE: Informed consent was obtained. Patient brought to catheterization laboratory. Bilateral groins were prepped and draped in the usual sterile fashion. The area of the right femoral artery was anesthetized with lidocaine. Using modified Seldinger technique and a micropuncture kit, access was obtained and a 5-Turkish sheath was advanced. Next, a 5-Turkish JL4 catheter was advanced over a wire and used to cannulate the left coronary artery and angiographic views obtained. This catheter was removed and a 5-Turkish JR4 catheter was advanced over a wire. This did not selectively cannulate the right coronary artery. A number of catheters were tried including a JR3.5, an RCB, ARs, and a multipurpose as well. Ultimately a right coronary bypass catheter was used and this got closest to the artery, which had a high anterior takeoff. Although nonselective views were obtained, flow was good and no obstructive lesions were appreciated. Aortography was also performed to document flow in the right coronary artery. Left ventriculography was performed. After all were catheters removed, the angled pigtail catheter was advanced to the left ventricle under fluoroscopic guidance and left ventriculography was performed with the camera in the HOFFMANN position. Left ventricular tracing were obtained and, following pullback, aortic pressure gradients were obtained. As noted, aortography was also performed using the same catheter. At the end of the case all catheters were removed. Angiography of the right femoral access site was obtained prior to achieving hemostasis with manual compression and no complications. FINDINGS: CORONARIES: 1. Left main: This is angiographically normal. 2. Left anterior descending artery: This vessel appears angiographically normal. Gives rise to a couple of diagonal vessels which supplied a fairly significant distribution and had no evidence of obstructive disease. 3. Circumflex artery: This vessel is likely codominant. It has no evidence of obstructive disease. 4. Right coronary artery: As noted, it appears to have a high anterior takeoff which was somewhat difficult to cannulate. Multiple catheters were used, which never selectively cannulated the vessel. Root aortography was also performed to document filling of the vessel. Ultimately, a fairly decent nonselective angiographic view was obtained. LEFT VENTRICULOGRAPHY: This reveals an ejection fraction of about 41% with hypokinesis of the mid ventricular segments. There was clear motion of the apical segment. End-diastolic pressure 12 mm (post contrast). No gradient on pullback. AORTOGRAPHY: This reveals a decent flow in the left system and right coronary system. No evidence for aortic insufficiency. No evidence for significant plaquing in the ascending aorta. IMPRESSION: 1. No evidence of obstructive coronary disease. 2. Evidence for cardiomyopathy with hypokinesis of mid segments but with good motion of the apical segment and basal segments. End-diastolic pressure approximately 12 mm (post contrast). MTDD
--- NOTE | 2017-01-23 16:40 | NUR ---
Post Procedure: Received patient @ approx 1140 from [facility] post heart cath. Pedal pulses present. Observed Rt groin insertion site, no bleeding or hematoma noted. Skin tear above insertion site, minimal bleeding. BR and HOB @ 30 degrees until 1345. Patient eating lunch and drinking fluids, tolerating well. Patient log rolling to use bedpan. 1400: Patient now off bedrest and ambulating to BR. VSS. SR 70s per telecommunications equipment installer. Denies pain. Pedal pulses present. No bleeding or hematoma noted at Rt groin insertion site. No increase in bleeding at skin tear site. IVFs converted to SL. Educated patient on s/s to report to nursing r/t post procedure. Care and assessment ongoing.
[2017-01-24 01:38] VITALS: BP 121/75; PULSE 60; RESP 16; O2SAT 96
--- NOTE | 2017-01-24 03:42 | NUR ---
Site Pts catheter insertion site has remained unchanged over the shift. Site is covered in tegaderm and has small amount of blood collected at insertion site. Tegaderm also has a larger collection of blood above insertion site from a skin tear. Pt states she was not aware of this skin issue prior to her procedure.
[2017-01-24 04:54] VITALS: PULSE 56
[2017-01-24 05:57] VITALS: BP 116/76; PULSE 64; RESP 16; O2SAT 99
--- NOTE | 2017-01-24 09:22 | PCM.DIMED ---
Discharge Instructions Date of Service Jan 24, 2017 Dates of Hospitalization Jan 21, 2017 at 16:28 Discharge Diagnosis Discharge Diagnosis # Chest pain, of Stress Cardiomyopathy # Hypertension # COPD, present time of admission. # Patient had 11 miscarriages and her sister had lupus # Nicotine Addiction Diet Discharge Diet: Heart Healthy Activity Discharge Activity: No restrictions Call your provider Call your provider for: Fever or Chills, Shortness of breath, Bleeding, Chest pain Patient Instructions Follow-up Provider: Dian Ruiz PA-C Follow-up with PCP in: 1 week Provider: Ursula Lopez MD Follow-up in: 2 weeks Franci Fagan MD Jan 24, 2017 09:22
[2017-01-24] MEDS ORDERED: ASPI81TA3 PO (09:24)
[2017-01-24] MEDS ORDERED: CLOP75TA28 PO (09:24)
[2017-01-24] MEDS ORDERED: ATOR10TA66 PO (09:24)
[2017-01-24] MEDS ORDERED: CARV3.122 PO (09:24)
[2017-01-24] MEDS ORDERED: NITR0.4T SL (09:24)
[2017-01-24 09:58] VITALS: BP 124/84; PULSE 63; RESP 16; O2SAT 98
[2017-01-24 10:23] VITALS: PULSE 76
--- NOTE | 2017-01-24 10:43 | NUR ---
Social Work-discharge: Data:EMR Reviewed. Pt is on day 3 of hospitalization for chest pain per H&P. Pt is medically stable for discharge. Per RN notes, pt has been up independent in her room. No discharge needs identified. All updated and agreeable to plan. Assessment:Pt who is independent at baseline. Plan: Pt to discharge home today via POV. No discharge needs identified. All updated and agreeable to plan. JANA Licea
--- NOTE | 2017-01-24 11:22 | PCM.DC.MED ---
Discharge Summary Date of Service Jan 24, 2017 Dates of Hospitalization Date of Hospital Admission Jan 21, 2017 at 16:28 Date of Discharge: Jan 24, 2017 Providers: Admitting Physician: Geovanny Lucio MD Primary Care Physician: Dian Ruiz PA-C Attending Physician: Daphne Fagan MD Diagnosis at Time of Discharge Diagnosis at Time of Discharge # Chest pain, of Stress Cardiomyopathy # Hypertension # COPD, present time of admission. # Patient had 11 miscarriages and her sister had lupus # Nicotine Addiction Consultations [address] [address] CONSULTATION REPORT PATIENT: DARRELL MOHR : 1965 MR#: [id number] ADMIT: 01/21/2017 JOB ID: [id number] DATE OF SERVICE: 01/22/2017 CARDIOLOGY CONSULTATION: CHIEF COMPLAINT: I was asked by the hospital team to consult on this patient given chest pain and positive troponin. HISTORY OF PRESENT ILLNESS: The patient is a 51-year-old woman who is not treated for any particular problems. She says over the past two years she has had episodic chest pain. She says it can occur at any time. With this current episode she was at work, working at the [employer], and worked through the pain. She did notice that the pain actually worsened with activity during the day; but, given the fact that it did not resolve, she was evaluated by a nurse and she was told to go to the ED. In the ED she had no acute EKG changes. However, she was admitted to the floor with negative troponins. A plan was made for a possible stress test; however, the troponin did go up ultimately and she was started on a heparin drip. Currently she is doing well. She denies chest pain, chest pressure, increased shortness of breath. She would like to eat. She denies any history of orthopnea, PND, lower extremity edema, or palpitations. She denies increased stress. She does say she has had a history of just not feeling well, having night sweats, and has had workup with PET scan back in 2012. She is currently on heparin without problems. Last night she was started on Plavix as well as aspirin. PAST MEDICAL HISTORY/PROBLEM LIST: History of COPD. MEDICATIONS: Include albuterol and cyclobenzaprine for shoulder pain. FAMILY HISTORY: No early coronary disease. Her mother had systemic lupus erythematous and she also had stents placed. SOCIAL HISTORY: She is a smoker but she has cut down to half a pack a day. No alcohol use. REVIEW OF SYSTEMS: Overall health: She has night sweats. GI: No problems with ulcers or blood in her stool. : No dysuria, hematuria. Pulmonary: She has COPD but denies any significant shortness of breath. Cardiac: As per HPI. Also no orthopnea or PND. No lower extremity edema. No palpitations. Endocrine: No heat or cold intolerance but experiencing night sweats. Heme: No easy bruising or bleeding. Musculoskeletal: She has some right shoulder pain for which she uses cyclobenzaprine. Derm: No rash or skin breakdown. Neuro: No chronic headaches. Psych: No acute issues. Ophtho: No acute vision changes. ENT: No sore throat or difficulty swallowing. All other review of systems on a 12 point review of system are negative. PHYSICAL EXAMINATION: Blood pressure is 130/85. She is afebrile. Heart is 54. Sats are 94% on room air. General: In no acute distress. Speaking in full sentences without apparent shortness of breath. Head and neck exam: Normocephalic, atraumatic. Neck: No obvious JVD. Carotids without bruits appreciated. Heart exam: Regular rate and rhythm without murmurs, gallops, or rubs appreciated. Lungs: Clear to auscultation. Back: No CVA tenderness to palpation. Abdomen: Soft, nondistended. Extremities: Warm. No appreciable edema. 2+ distal pulses. Skin: Without breakdown appreciated. Neurologic: Alert and oriented x3. Gait is not tested. Psych: Appropriate mood and affect. Vascular: As noted, no carotid bruits. ENT: Mucous membranes moist. Ophtho: Vision grossly intact. LABORATORY DATA: Labs show a white count 5.3, an HH of 14.1 and 43.1, and platelets of 195,000. Chemistry shows sodium 139, potassium 4.2, chloride and bicarb 106 and 19, respectively. BUN and creatinine 11 and 0.59. ALT 51. Troponins were less than 0.01, then went to 0.141, and now trended down to 0.055. Cholesterol shows a total of 177, LDL of 104, and an HDL of 63. Imaging shows a CT angiogram which shows no aortic aneurysm or dissection. No evidence for central pulmonary embolism. Small lung nodules bilaterally with followup CT suggested. Small hiatal hernia. Chest x-ray showed no acute cardiopulmonary disease. EKG today shows evolving anterior changes. CURRENT MEDICATIONS: Include carvedilol 3.125 b.i.d., Plavix 75 daily, aspirin 81 mg a day, heparin drip, nitroglycerin, Lipitor. Other p.r.n. medications. IMPRESSION: The patient has an echo pending at this time. She came in with chest pain and elevated troponins. She is now chest pain free. She has involving anterior changes. This may represent left anterior descending (LAD) disease. She seems to have a lot of stress in her life and stress cardiomyopathy could certainly be considered as well. PLAN: 1. Continue with heparin drip. I have discussed the risks and benefits of cardiac catheterization, the potential findings, the potential treatments including bypass surgery, stents, the different risks for restenoses, the different durations of Plavix required. She understands and would agree to proceed. Will plan on doing this tomorrow morning. 2. Continue with current cardiac medications. Ursula Lopez MD 01/22/17 1712 Procedures XRay, CTs & MRIs PROCEDURE: X-RAY CHEST ONE VIEW, PORTABLE ([id number]) INDICATIONS: CHEST PAIN TECHNIQUE: One view of the chest was acquired. COMPARISON: [facility], , XR CHEST 1VW (PORTABLE), 07/06/2016, 11 :49. FINDINGS: Surgical changes and devices: None. Lungs and pleura: No pleural effusions or pneumothorax. Lungs are clear. Mediastinum: Mediastinal contours appear normal. Heart size is normal. Bones and chest wall: No suspicious bony lesions. Overlying soft tissues appear unremarkable. IMPRESSION: No acute cardiopulmonary disease process. Dictated by: Alee Ludwig MD, PhD on 01/21/2017 at 11:49 Approved by: Alee Ludwig MD, PhD on 01/21/2017 at 11:50 Cardiac Echo Impression Echocardiogram Report Name: DARRELL MOHR DStudy Date: 01/22/2017 Height: 66 in Hospital Exam Location: [facility] Weight: 166 lb Gender: Female BSA: 1.8 m2 : 1965 Age: 51 yrs BP: 134/ 87 mmHg Reason For Study: Chest pain Ordering Physician: [facility]PITAL[facility] Performed By: James Zhao Referring Physician: GEOVANNY LUCIO Interpretation Summary 1. Normal left ventricular size and wall thickness with wall motion abnormalities as noted below. Estimated EF of 35 to 40% 2. Normal right ventricular size and systolic function 3. No valvular pathology appreciated. There is no old study for comparison Invasive Procedures [address] [address] DIAGNOSTIC CARDIAC CATHETERIZATION PATIENT: DARRELL MOHR : 1965 MR#: [id number] ADMIT: 01/21/2017 JOB ID: [id number] SERVICE DATE: 01/23/2017 PROCEDURES PERFORMED: 1. Left heart catheterization with coronary angiography. 2. Left ventriculography. 3. Ascending aortography. INDICATIONS: A 51-year-old woman who presented with chest pain, elevated troponins consistent with non-ST elevation UT, and an abnormal echocardiogram. She presents for further assessment by cardiac catheterization. DESCRIPTION OF PROCEDURE: Informed consent was obtained. Patient brought to catheterization laboratory. Bilateral groins were prepped and draped in the usual sterile fashion. The area of the right femoral artery was anesthetized with lidocaine. Using modified Seldinger technique and a micropuncture kit, access was obtained and a 5-Thai sheath was advanced. Next, a 5-Thai JL4 catheter was advanced over a wire and used to cannulate the left coronary artery and angiographic views obtained. This catheter was removed and a 5-Thai JR4 catheter was advanced over a wire. This did not selectively cannulate the right coronary artery. A number of catheters were tried including a JR3.5, an RCB, ARs, and a multipurpose as well. Ultimately a right coronary bypass catheter was used and this got closest to the artery, which had a high anterior takeoff. Although nonselective views were obtained, flow was good and no obstructive lesions were appreciated. Aortography was also performed to document flow in the right coronary artery. Left ventriculography was performed. After all were catheters removed, the angled pigtail catheter was advanced to the left ventricle under fluoroscopic guidance and left ventriculography was performed with the camera in the HOFFMANN position. Left ventricular tracing were obtained and, following pullback, aortic pressure gradients were obtained. As noted, aortography was also performed using the same catheter. At the end of the case all catheters were removed. Angiography of the right femoral access site was obtained prior to achieving hemostasis with manual compression and no complications. FINDINGS: CORONARIES: 1. Left main: This is angiographically normal. 2. Left anterior descending artery: This vessel appears angiographically normal. Gives rise to a couple of diagonal vessels which supplied a fairly significant distribution and had no evidence of obstructive disease. 3. Circumflex artery: This vessel is likely codominant. It has no evidence of obstructive disease. 4. Right coronary artery: As noted, it appears to have a high anterior takeoff which was somewhat difficult to cannulate. Multiple catheters were used, which never selectively cannulated the vessel. Root aortography was also performed to document filling of the vessel. Ultimately, a fairly decent nonselective angiographic view was obtained. LEFT VENTRICULOGRAPHY: This reveals an ejection fraction of about 41% with hypokinesis of the mid ventricular segments. There was clear motion of the apical segment. End-diastolic pressure 12 mm (post contrast). No gradient on pullback. AORTOGRAPHY: This reveals a decent flow in the left system and right coronary system. No evidence for aortic insufficiency. No evidence for significant plaquing in the ascending aorta. IMPRESSION: 1. No evidence of obstructive coronary disease. 2. Evidence for cardiomyopathy with hypokinesis of mid segments but with good motion of the apical segment and basal segments. End-diastolic pressure approximately 12 mm (post contrast). Ursula Lopez MD 01/23/17 5859 Brief History Patient is a 51-year-old white female who has been having chest pain possibly 2 times a month at his quite severe and feels like someone is sitting on her chest. She began having that pain again this morning which woke her up at approximately 450 in the morning. Patient generally work wakes up at 5. Patient felt like there was someone sitting on her chest or her cat was sitting on her chest. He tried repositioning herself to help alleviate the pain and taking the breast nothing really worked. She ended up leaving the house just after 5 AM to go to work the patient arrived at work at 5:19 AM. She started working at 5:30 AM. She had to stop and take deep rest periodically to try to alleviate her pain. She then had a coworker take her vital signs as her coworker was also a film crew member and [employer]. Her coworker told her that she looked pale and diaphoretic and needed to go to the emergency room. Patient came to the emergency room and was evaluated by Dr. Gil Logan. Patient had a troponin which was negative she was given a GI cocktail she approximate 5 over several hours later had another strip on which was negative the patient was agreeable to go home until she had another episode of chest pain with diaphoresis. Patient states she was sweating from head to toe even wanted to take her shoes and socks off she felt weak and the chest pain was similar or worse than the pain prior to coming into the emergency room. Due to the recurrent chest pain and history of tobacco use the patient was to be brought in under observation to the hospital service for further evaluation and treatment. Hospital Course # Chest pain, present at the time of admission. Active, with diaphoresis.. - Patient's troponins have trended to significantly positive levels. Therefore , Dr. Ursula Lopez took her for a cardiac catheterization today. There is no significant coronary artery disease. This is a stress cardiomyopathy. - We will continue aspirin, Plavix and Coreg at home. # Patient has history of hypertension that has never been treated, present time of admission. Active. - We will continue carvedilol 3.125 mg by mouth twice a day at home. # COPD, present time of admission. Active - We will offer treatment as needed. - Patient was advised strongly again that she needs to quit smoking. She states is difficult as she has been smoking since she was 12 years old. However , she has cut down to half a pack per day. # Patient had 11 miscarriages and her sister had lupus - CT angiogram the chest to rule out pulmonary embolism as cause for her chest pain and diaphoresis was performed and showed a 5 mm pulmonary nodule which has increased in size from 3 mm on the last CT scan. - Consider other such as malignancy. .. Patient will need follow-up CT scan in 3-6 months. Disposition: Per discussion with cardiology will discharge home today Exam Vital Signs (Last) Date Time Temp Pulse Resp B/P Pulse Ox O2 Delivery O2 Flow Rate FiO2 01/24/17 05:57 36.4 64 16 116/76 99 Room Air Exam She is up and walking around the room, anxious to go home. She has had no further chest pain. Heart is regular rate and rhythm without murmur Lungs are clear to auscultation bilaterally Extremities have no ankle edema. Test 01/21/17 10:30 01/21/17 12:40 01/21/17 16:22 01/22/17 05:00 Hold Lo Top Tube Received (Received) Pro-B-Type Natriuretic Peptide 88.91pg/mL (0-249) Urine Color Straw (YELLOW) Urine Appearance Clear (CLEAR,HAZY) Urine pH 6.0 (5.0-8.0) Urine Specific Merritt 1.010 (1.003-1.035) Urine Protein Tracemg/dL (NEG,TRACE) Urine Glucose (UA) Negativemg/dL (NEGATIVE) Urine Ketones Negativemg/dL (NEGATIVE) Urine Occult Blood Trace (NEGATIVE) Urine Nitrite Negative (NEGATIVE) Urine Bilirubin Negative (NEGATIVE) Urine Urobilinogen Normalmg/dL (NORMAL) Urine Leukocyte Esterase Moderate (NEGATIVE) Urine RBC 0-2/hpf (0-2) Urine WBC 0-5/hpf (0-5) Urine Epithelial Cells Few/hpf (NONE-MOD) Urine Crystals None seen (NONE SEEN) Urine Bacteria Few/hpf (NONE-FEW) Urine Hyaline Casts None/lpf (NONE) Urine Granular Casts None seen (NONE SEEN) Urine Waxy Casts None seen (NONE SEEN) Urine Red Blood Cell Casts None seen (NONE SEEN) Urine White Blood Cell Casts None seen (NONE SEEN) Urine Mucus None seen (None Seen) Urine Trichomonas None seen (NONE SEEN) Urine Yeast None (NONE SEEN) Urinalysis Comment None Urine Culture Reflexed Indicated Urine Opiates Screen Negative Urine Methadone Screen Negative Urine Barbiturates Screen Negative Urine Amphetamines Screen Negative Urine Benzodiazepines Screen Negative Urine Cocaine Metabolite Screen Negative Urine Cannabinoids Screen Positive Troponin T 0.055ug/L (0.0-0.011) Triglycerides Level 46mg/dL (0-149) Cholesterol Level 177mg/dL (100-199) LDL Cholesterol, Calculated 104.800mg/dL (0-99) VLDL Cholesterol 9.200mg/dL HDL Cholesterol 63mg/dL (>39) Cholesterol/HDL Ratio 2.81 (0.0-4.4) Test 01/23/17 04:10 01/24/17 03:55 White Blood Count 5.6th/mm3 (3.8-10.1) Red Blood Count 5.18mil/mm3 (3.90-5.20) Hemoglobin 14.9g/dL (12.0-15.6) Hematocrit 45.3% (35.0-46.0) Mean Corpuscular Volume 87.5fL (81-100) Mean Corpuscular Hemoglobin 28.8pg (27.0-35.0) Mean Corpuscular Hemoglobin Concent 32.9% (32.0-37.0) Red Cell Distribution Width 13.9% (12.3-15.4) Platelet Count 200bil/L (150-400) Neutrophils (%) (Auto) 59.4% (40-74) Lymphocytes (%) (Auto) 29.8% (14-46) Monocytes (%) (Auto) 7.4% (4-12) Eosinophils (%) (Auto) 2.5% (0-5) Basophils (%) (Auto) 0.7% (0-3) Erythrocyte Sedimentation Rate 4mm/hr (0-40) Prothrombin Time 10.2sec (8.1-12.5) Prothromb Time International Ratio 0.95ratio Activated Partial Thromboplast Time 58.8sec (22.8-33.0) Magnesium Level 2.0mg/dL (1.6-2.6) Total Bilirubin 0.3mg/dL (0.0-1.2) Aspartate Amino Transf (AST/SGOT) 26U/L (0-50) Alanine Aminotransferase (ALT/SGPT) 37U/L (0-32) Alkaline Phosphatase 108U/L (25-150) Total Protein 7.2g/dL (6.4-8.4) Albumin 4.2g/dL (3.4-5.0) Procalcitonin 0.04ng/mL (0.00-0.08) Complement C3 139mg/dL (82-167) Complement C4 39mg/dL (14-44) Rapid Plasma Reagin Non reactive (Non Reactive) Sodium Level 138mEq/L (134-144) Potassium Level 4.7mEq/L (3.5-5.2) Chloride Level 102mEq/L (97-108) Carbon Dioxide Level 22mmol/L (18-29) Blood Urea Nitrogen 17mg/dL (6-24) Creatinine 0.56mg/dL (0.57-1.00) Estimat Glomerular Filtration Rate 162mL/min (>59) Glucose Level 95mg/dL (60-99) Calcium Level 9.9mg/dL (8.5-10.1) Microbiology Results Urine cultures pending Discharge Medications Discharge Medications Aspirin Chew (Aspirin Chew) 81 Mg Chew 81 MG PO DAILY Prescribed by: BETTYE FAGAN MD Atorvastatin Calcium (Atorvastatin Calcium) 10 Mg Tablet 10 MG PO HS Prescribed by: BETTYE FAGAN MD Carvedilol (Carvedilol) 3.125 Mg Tablet 3.125 MG PO BIDWM Prescribed by: BETTYE FAGAN MD Clopidogrel (Clopidogrel) 75 Mg Tablet 75 MG PO DAILY Prescribed by: BETTYE FAGAN MD Latanoprost (Latanoprost) 2.5 Ml Drops 1-2 DROP BOTH_EYES HS (Reported) As needed Albuterol HFA (Proair HFA) 8.5 Gm Hfa.aer.ad 2 PUFFS INHALATION Q4H PRN PRN For Shortness of Breath (Reported) Cyclobenzaprine (Cyclobenzaprine) 10 Mg Tablet 10 MG PO HS PRN PRN For Spasm ( Reported) Nitroglycerin SL (Nitrostat) 0.4 Mg Tab.subl 0.4 MG SL Q5MIN PRN PRN For Chest Pain Prescribed by: BETTYE FAGAN MD Followup Plan Discharge Diet: Heart Healthy Discharge Activity: No restrictions Follow-up Provider: Dian Ruiz PA-C Follow-up with PCP in: 1 week Provider: Ursula Lopez MD Follow-up in: 2 weeks Franci Fagan MD Jan 24, 2017 09:25
--- NOTE | 2017-01-24 11:55 | PROG NOTE ---
[address] [address] PROGRESS NOTE PATIENT: DARRELL MOHR : 1965 MR#: [id number] ADMIT: 01/21/2017 JOB ID: [id number] DATE: 01/24/2017 SUBJECTIVE: The patient is feeling better. No more chest pain or worsening shortness of breath or PND, orthopnea, or groin bleed. In summary, this 51-year-old pleasant female who has a history of smoking presented with chest pain and abnormal troponin. She was treated for non ST-T ME. She had an echocardiogram on January 22, 2017 which revealed LV ejection fraction 35-40% with normal size left ventricle with mid anterior wall, mid inferior wall, mid lateral as well as mid anterior and inferior septal hypokinesis. No significant valvular pathology. Right ventricular function was normal. The patient underwent left heart catheterization by Dr. Lopez yesterday which did not reveal any significant coronary artery disease. The possibility of stress-induced cardiomyopathy was kept. LV end-diastolic pressure was about 12 mmHg. OBJECTIVE: Blood pressure 116/76, heart rate 64, respiratory rate 16, oxygen saturation 99%. Neck: No apparent JVP. Chest: No obvious crepitation or rhonchi. CVS: S1, S2 normal. No S3, no S4. No significant murmur. Abdomen: No obvious pulsatile mass felt. Right groin examination did not reveal any significant hematoma or bruit. Extremities: No significant pedal edema. Telemetry: Sinus rhythm without any significant arrhythmias. HIGHWAY TECHNICIAN: Alert, oriented to time, place, and person. LABORATORIES: Sodium 138, potassium 4.7, BUN 17, creatinine 0.56. HDL cholesterol 63, hemoglobin 14.9, platelets 200. ASSESSMENT AND PLAN: Likely stress-induced cardiomyopathy presented with acute coronary syndrome with chest pain, abnormal troponin, status post left heart catheterization which did not reveal any significant coronary artery disease. On surface EKG, at present she is in sinus rhythm. No significant sustained arrhythmias. At this point of time, will recommend medical management and risk factor modification. She is on beta rayray. Slowly and gradually, will need maximization of carvedilol. She is not on KENNY inhibitor. I will start her on lisinopril 2.5 mg daily. If she is able to tolerate it, then will recommend starting her on spironolactone as well. She is not in heart failure at this point of time. I do not see a need for dual anti-platelet therapy, hence, will stop Plavix but continue aspirin. Her HDL cholesterol is good. She does not have known hyperlipidemia history. Total cholesterol 177, triglycerides 46, and LDL 104, hence I do not see a long-term need for statin at this point of time. Complete cessation of smoking discussed. She understands the risk involved including the risk of vasospasm. Her proBNP was 88.91. The patient understood. The patient was examined in the presence of her [id number] who is a nurse. All the questions were answered. At this point of time, Cardiology Service will sign off. Follow up with Dr. Lopez as an outpatient in 2-3 weeks. TOTAL TIME SPENT TODAY: About 35 minutes. SVETA
--- NOTE | 2017-01-24 12:13 | NUR ---
Discharge Nursing Note: Patient was discharged to home at 1125. Her IV was removed intact. Her Telemetry was discontinued . All of patients discharge information was reviewed with her and her questions were answered to her satisfaction. Patient was escorted to the hospital lobby by nursing staff member and she was driven to home by her .
[2017-01-27 14:13] LABS: Perinuclear (P-ANCA) <1:20 titer (Neg:<1:20)
[2017-01-28 14:09] LABS: Protein C-Functional 117 % (73-180)
== END 2017-01-24 11:20 | disposition home or self-care (01) | DRG 287 ==
LOC: SED 10:17 → OBSVTOIN 16:28 → MPC 16:28
PROVIDERS: ADMIT Internal Medicine Infectious Disease; ATTEND Internal Medicine Infectious Disease
PROC: 4A023N7 Measurement of Cardiac Sampling and Pressure, Left Heart, Percutaneous Approach (ICD-10-PCS; principal; 2017-01-23)
PROC: B211YZZ Fluoroscopy of Multiple Coronary Arteries using Other Contrast (ICD-10-PCS; 2017-01-23)
DX: I51.81 Takotsubo syndrome (principal); I10 Essential (primary) hypertension; F17.210 Nicotine dependence, cigarettes, uncomplicated; J44.9 Chronic obstructive pulmonary disease, unspecified

== ENCOUNTER 2017-04-26 12:15 | Emergency (ER) | payer OTHER ==
[~2017-04-26] VITALS: Ht 167.6 cm; Wt 80.0 kg
[~2017-04-26 12:15] MED LIST changes: +ALBU8.5H2 INHALATION; +ASPI81TA3 PO; +ATOR10TA66 PO; +CARV3.122 PO; +CLOP75TA28 PO; +CYCL10TA9 PO; -FAMO20T PO; +LATA2.5D6 BOTH_EYES; +NITR0.4T SL
[2017-04-26 12:17] VITALS: BP 154/87; PULSE 63; RESP 16; O2SAT 97
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
[2017-04-26] MEDS ORDERED: MethylprednisoLONE Sodium Succinate 62.5 mg/mL 2 mL Inj IVPUSH ONE (12:40)
[2017-04-26] MEDS ORDERED: Albuterol-Ipratropium 3 mL Inhalation Solution NEB ONE (12:40)
[2017-04-26 12:57] VITALS: PULSE 57; RESP 18; O2SAT 100
--- NOTE | 2017-04-26 13:07 | DRSVH ---
PROCEDURE: X-RAY CHEST, TWO VIEWS ([id number]) INDICATIONS: cough, SOB TECHNIQUE: 2 views of the chest were acquired. COMPARISON: [facility], CR, XR CHEST 1VW (PORTABLE), 01/21/2017, 11:13. FINDINGS: Surgical changes and devices: None. Lungs and pleura: No pleural effusions or pneumothorax. Lungs are clear. Mediastinum: Mediastinal contours are normal. Heart size is normal. Bones and chest wall: No suspicious bony abnormalities. Soft tissues appear unremarkable. IMPRESSION: No acute process. Dictated by: Nadya Iverson M.D. on 04/26/2017 at 13:05 Approved by: Nadya Iverson M.D. on 04/26/2017 at 13:06
[2017-04-26 13:24] LABS: BASOPHILS % (AUTO) 0.8 % (0-3); EOSINOPHILS % (AUTO) 2.3 % (0-5); Mean Corpuscular Hemoglobin 28.5 pg (27.0-35.0); Mean Corpuscular Volume 87.9 fL (81-100); NEUTROPHILS % (AUTO) 60.5 % (40-74); Platelet Count 280 bil/L (150-400)
[2017-04-26] MEDS ORDERED: BENZ-12 PO (13:37)
[2017-04-26] MEDS ORDERED: ALBU8.5H2 INHALATION (13:37)
[2017-04-26] MEDS ORDERED: PRE20 PO (13:37)
[2017-04-26] MEDS ORDERED: AZIT250T4 PO (13:37)
[2017-04-26 14:10] LABS: TROPONIN T < 0.010 ug/L (0.0-0.011)
[2017-04-26 14:28] VITALS: BP 157/72; PULSE 62; RESP 18; O2SAT 100
== END 2017-04-26 14:29 | disposition home or self-care (01) ==
LOC: SED 12:15
DX: J44.1 Chronic obstructive pulmonary disease with (acute) exacerbation (principal); R20.2 Paresthesia of skin; R25.2 Cramp and spasm; R19.7 Diarrhea, unspecified; R42 Dizziness and giddiness; I11.9 Hypertensive heart disease without heart failure; I42.9 Cardiomyopathy, unspecified; K21.9 Gastro-esophageal reflux disease without esophagitis; Z87.440 Personal history of urinary (tract) infections; Z95.5 Presence of coronary angioplasty implant and graft; Z90.49 Acquired absence of other specified parts of digestive tract; Z98.890 Other specified postprocedural states; Z79.82 Long term (current) use of aspirin; Z87.891 Personal history of nicotine dependence
CPT/HCPCS: 36415; 71020; 80053; 84484; 85025; 96374; 99285; J2930; J7620